=== PATIENT | female | born 1940 | race Caucasian/White ===

== ENCOUNTER 2021-09-18 14:47 | Inpatient (IN) ==
[2021-09-18] MEDS ORDERED: Pantoprazole VIAL 40 MG VIAL IV ONE (15:12)
[2021-09-18] MEDS ORDERED: Lactated Ringers 1000 ml BAG 1,000 ML IV ONE (15:13)
[2021-09-18 16:40] LABS: ABS Lymphocytes 0.1 10^3/ul (1.0-4.8); ABS Monocytes 0.7 10^3/ul (0-0.8); ABS Neutrophils 7.9 10^3/ul (1.5-7.7); Hematocrit 23 % (35-47); Hemoglobin 7.5 g/dL (12.0-16.0); Lymphocyte % 1.6 %; Mean Corpuscular HGB Conc 33 g/dL (31-36); Mean Corpuscular Hemoglobin 27 pg (27-31); Mean Corpuscular Volume 83 fL (80-97); Mean Platelet Volume 7.5 fL (7.4-10.4); Nucleated Red Blood Cells % 0.1; Platelet Count 148 10^3/uL (150-450); Red Blood Count 2.76 10^6 /uL (3.70-4.87); Red Cell Distribution Width 18 % (10-15); White Blood Count 8.8 10^3/uL (3.5-10.8)
[2021-09-18 17:00] LABS: Troponin I 0.01 ng/mL (<0.03)
[2021-09-18 17:25] LABS: ALT < 3 U/L (7-52); AST 3 U/L (13-39); Alkaline Phosphatase 22 U/L (35-149); Blood Urea Nitrogen 53 mg/dL (6-24); C Reactive Protein 12.34 mg/L (<8.01); CO2 Carbon Dioxide 17 mmol/L (22-32); Creatine Kinase < 10 U/L (10-223); Glucose 100 mg/dL (70-100)
[2021-09-18 17:27] LABS: Chloride 119 mmol/L (101-111); Sodium 148 mmol/L (135-145)
[2021-09-18 17:40] LABS: Albumin 1.8 g/dL (3.2-5.2); Albumin/Globulin Ratio 1.5 (1-3); Anion Gap 12 mmol/L (2-11); Calcium 4.6 mg/dL (8.6-10.3); Globulin 1.2 g/dL (2-4); Total Protein < 3.0 g/dL (6.4-8.9)
[2021-09-18 17:44] LABS: Activated Partial Thrombo Time 25.7 seconds (26.0-38.0); INR 1.3 (0.86-1.15)
[2021-09-18] MEDS ORDERED: Potassium Chloride IV 2 MEQ/ML 10 ML VIAL (20 MEQ) IV ONE (17:47)
[2021-09-18] MEDS ORDERED: Calcium Gluconate 4 GM in NS 0.9% 250 ml 250 ML IV ONE (17:49)
[2021-09-18] MEDS ORDERED: Lactated Ringers 1000 ml BAG 1,000 ML IV SCH (18:00)
[2021-09-18] MEDS: KCL 10 MEQ/50 ML IVPREMIX 10 MEQ/50 ML BAG IV ONE ×2 (18:04→18:12)
[2021-09-18] MEDS: Potassium Chlor 20 meq TAB.ER PO ONE ×4 (18:11→18:21)
[2021-09-18] MEDS ORDERED: Ondansetron 4 mg VIAL 2 MG/ML 2 ml VIAL IV PRN (18:13)
[2021-09-18] MEDS ORDERED: Multivitamins ADULT w/MIN LIQ 15 ML UDC PO ONE (18:21)
[2021-09-18] MEDS ORDERED: Potassium Chloride LIQUID 20 MEQ/15 ML LIQUID PO ONE (18:23)
[2021-09-18 18:37] LABS: Magnesium 1.3 mg/dL (1.9-2.7)
[2021-09-18 18:41] LABS: Calcium (PTH Intact) 4.5 mg/dL (8.6-10.3)
[2021-09-18] MEDS ORDERED: Iohexol 300 (CONTRAST) 10 ML SDV IV ONE (18:41)
[2021-09-18 18:43] LABS: Lipase 18 U/L (11.0-82.0); Phosphorus 1.5 mg/dL (2.5-5.0)
[2021-09-18] MEDS ORDERED: Iohexol 350 (CONTRAST) 500 ML MDV IV ONE (18:43)
[2021-09-18 18:49] LABS: Vitamin D Total 25(OH) 46.2 ng/mL (20-50)
[2021-09-18 18:54] LABS: Venous Bicarbonate HCO3 26.8 mmol/L (24-28)
[2021-09-18] MEDS ORDERED: Magnesium Sulf 4 GM/100 ML IV 4,000 MG/100 ML BAG IVPB ONE (18:59)
[2021-09-18] MEDS ORDERED: SODIUM PHOSPHATE IV ONE (18:59)
[2021-09-18] MEDS ORDERED: NS IV ONE (18:59)
[2021-09-18] MEDS ORDERED: Sodium Phosphate IV 20 MMOLE in NS 0.9% 250 ml 250 ML IV ONE (20:00)
[2021-09-18 20:01] LABS: Ferritin 116.1 ng/mL (11-307)
[2021-09-18 21:44] LABS: Hematocrit 34 % (35-47); Hemoglobin 10.5 g/dL (12.0-16.0)
[2021-09-18 21:47] LABS: Calcium 8.5 mg/dL (8.6-10.3); Magnesium 3.4 mg/dL (1.9-2.7); Potassium 3.5 mmol/L (3.5-5.0)
[2021-09-18 21:53] LABS: Phosphorus 2.5 mg/dL (2.5-5.0); eGFR CKD-EPI 49.2 (>60)
[2021-09-18] MEDS: Thiamine 100 MG/ML 2 ml VIAL 500 MG in NS 0.9% 250 ml 250 ML IV SCH (23:55)
[2021-09-19 02:02] LABS: Hematocrit 28 % (35-47)
[2021-09-19 02:23] LABS: Calcium 8.7 mg/dL (8.6-10.3); Magnesium 3.6 mg/dL (1.9-2.7); Phosphorus 4.2 mg/dL (2.5-5.0); Potassium 2.9 mmol/L (3.5-5.0); eGFR CKD-EPI 53.1 (>60)
[2021-09-19 03:57] LABS: Hematocrit 29 % (35-47); Hemoglobin 9.5 g/dL (12.0-16.0); Mean Corpuscular HGB Conc 33 g/dL (31-36); Mean Corpuscular Hemoglobin 27 pg (27-31); Mean Corpuscular Volume 82 fL (80-97); Mean Platelet Volume 7.7 fL (7.4-10.4); Platelet Count 166 10^3/uL (150-450); Red Blood Count 3.51 10^6 /uL (3.70-4.87); Red Cell Distribution Width 18 % (10-15); White Blood Count 9.8 10^3/uL (3.5-10.8)
[2021-09-19] MEDS ORDERED: Potassium EFFERVES 25 meq TAB PO ONE (04:10)
[2021-09-19 04:14] LABS: ALT < 3 U/L (7-52); AST 7 U/L (13-39); Albumin 2.5 g/dL (3.2-5.2); Albumin/Globulin Ratio 1.8 (1-3); Alkaline Phosphatase 34 U/L (35-149); Anion Gap 9 mmol/L (2-11); Blood Urea Nitrogen 60 mg/dL (6-24); CO2 Carbon Dioxide 28 mmol/L (22-32); Calcium 8.3 mg/dL (8.6-10.3); Chloride 97 mmol/L (101-111); Globulin 1.4 g/dL (2-4); Glucose 109 mg/dL (70-100); Magnesium 3.3 mg/dL (1.9-2.7); Phosphorus 4.3 mg/dL (2.5-5.0); Sodium 134 mmol/L (135-145); Total Protein 3.9 g/dL (6.4-8.9); eGFR CKD-EPI 56.3 (>60)
[2021-09-19 04:35] LABS: ABS Lymphocytes 0.5 10^3/ul (1.0-4.8); ABS Monocytes 0.9 10^3/ul (0-0.8); ABS Neutrophils 8.4 10^3/ul (1.5-7.7); Lymphocyte % 4.8 %; Nucleated Red Blood Cells % 0.1
[2021-09-19] MEDS: Thiamine 100 MG/ML 2 ml VIAL 500 MG in NS 0.9% 250 ml 250 ML IV SCH ×3 (05:35→15:16)
[2021-09-19] MEDS: Multivitamins ADULT w/MIN LIQ 15 ML UDC PO SCH (08:28)
[2021-09-19] MEDS: Pantoprazole VIAL 40 MG VIAL IV SCH ×2 (08:28→20:24)
[2021-09-19] MEDS: KCL 20 MEQ/100 ML IVPREMIX 20 MEQ/100 ML BAG IV SCH ×2 (09:03→11:35)
[2021-09-19] MEDS: Iron Sucrose 200 MG in NS 0.9% 100 ml BAG 100 ML IVPB SCH (10:18)
[2021-09-19] MEDS: Lactated Ringers 1000 ml BAG 1,000 ML IV SCH ×2 (10:19→23:32)
[2021-09-19 13:32] LABS: Calcium 8.2 mg/dL (8.6-10.3); Magnesium 2.8 mg/dL (1.9-2.7); Potassium 4.1 mmol/L (3.5-5.0); eGFR CKD-EPI 51.4 (>60)
[2021-09-20] MEDS ORDERED: Midazolam 10 mg/10 ml VIAL 1 mg/ml 10 ml VIAL (10 mg) ONE (08:51)
[2021-09-20] MEDS ORDERED: fentaNYL 100 mcg/2 ml 50 MCG/ML VIAL ONE (08:51)
[2021-09-20] MEDS ORDERED: Iodixanol (CONTRAST) 320 MG/ML 100 ML SDV IV ONE (10:47)
[2021-09-20] MEDS: Iron Sucrose 200 MG in NS 0.9% 100 ml BAG 100 ML IVPB SCH (11:32)
[2021-09-20] MEDS: Multivitamins ADULT w/MIN LIQ 15 ML UDC PO SCH (11:33)
[2021-09-20] MEDS: Pantoprazole VIAL 40 MG VIAL IV SCH ×2 (11:33→20:17)
[2021-09-20 13:19] LABS: ABS Lymphocytes 0.6 10^3/ul (1.0-4.8); ABS Monocytes 0.6 10^3/ul (0-0.8); ABS Neutrophils 10.4 10^3/ul (1.5-7.7); Eosinophil % 0.1 %; Hematocrit 28 % (35-47); Hemoglobin 9.2 g/dL (12.0-16.0); Mean Corpuscular HGB Conc 32 g/dL (31-36); Mean Corpuscular Hemoglobin 27 pg (27-31); Mean Corpuscular Volume 83 fL (80-97); Mean Platelet Volume 7.7 fL (7.4-10.4); Platelet Count 136 10^3/uL (150-450); Red Blood Count 3.42 10^6 /uL (3.70-4.87); Red Cell Distribution Width 18 % (10-15); White Blood Count 11.6 10^3/uL (3.5-10.8)
[2021-09-20 13:36] LABS: Albumin 2.3 g/dL (3.2-5.2); Albumin/Globulin Ratio 1.6 (1-3); Calcium 7.4 mg/dL (8.6-10.3); Globulin 1.4 g/dL (2-4); Magnesium 2.2 mg/dL (1.9-2.7); Potassium 3.7 mmol/L (3.5-5.0); Total Bilirubin 0.7 mg/dL (0.2-1.0); Total Protein 3.7 g/dL (6.4-8.9); eGFR CKD-EPI 54.3 (>60)
[2021-09-20] MEDS ORDERED: cefTRIAXone 2 GM ADDV.VIAL 2 GM in NS 0.9% 100 ml BAG 100 ML IV ONE (16:29)
[2021-09-20] MEDS ORDERED: Lactated Ringers 500 ml BAG 500 ML IV ONE ×2 (17:28→18:36)
[2021-09-20 19:55] LABS: C Reactive Protein 96.24 mg/L (<8.01)
[2021-09-20] MEDS ORDERED: Zosyn per Pharmacy NOTE FOLLOW UP SCH (20:00)
[2021-09-20] MEDS: Piperacillin/Tazobac ADVAN 3.375 GM in NS 0.9% 100 ml BAG 100 ML IV ONE ×2 (20:17→21:11)
[2021-09-20 22:18] LABS: Urine Appearance Cloudy; Urine Bilirubin Negative (Negative); Urine Blood 1+ (Negative); Urine Color Yellow; Urine Glucose Negative (Negative); Urine Ketones Negative (Negative); Urine Nitrite Negative (Negative); Urine Protein Negative (Negative); Urine Specific Gravity 1.028 (1.002-1.030); Urine Urobilinogen Negative (Negative)
[2021-09-20 22:25] LABS: Urine Bacteria Absent (Absent); Urine Red Blood Cell Trace(0-2/hpf) (Absent); Urine Squamous Epithelial Cell Present (Absent); Urine White Blood Cell 2+(11-20/hpf) (Absent)
[2021-09-21] MEDS: Lactated Ringers 1000 ml BAG 1,000 ML IV SCH (01:53)
[2021-09-21] MEDS: ZOSYN 3.375 GM Q8H per EXTENDED INFUSION IV SCH ×3 (02:32→17:04)
[2021-09-21] MEDS: Pantoprazole VIAL 40 MG VIAL IV SCH ×2 (08:27→22:20)
[2021-09-21] MEDS: Multivitamins ADULT w/MIN LIQ 15 ML UDC PO SCH (08:27)
[2021-09-21 08:40] LABS: ABS Lymphocytes 0.8 10^3/ul (1.0-4.8); ABS Monocytes 0.6 10^3/ul (0-0.8); ABS Neutrophils 11.8 10^3/ul (1.5-7.7); Eosinophil % 0.3 %; Hematocrit 29 % (35-47); Hemoglobin 9.3 g/dL (12.0-16.0); Mean Corpuscular HGB Conc 32 g/dL (31-36); Mean Corpuscular Hemoglobin 26 pg (27-31); Mean Corpuscular Volume 83 fL (80-97); Mean Platelet Volume 8.2 fL (7.4-10.4); Platelet Count 159 10^3/uL (150-450); Red Blood Count 3.53 10^6 /uL (3.70-4.87); Red Cell Distribution Width 18 % (10-15); White Blood Count 13.3 10^3/uL (3.5-10.8)
[2021-09-21 09:02] LABS: Calcium 7.4 mg/dL (8.6-10.3); Magnesium 1.9 mg/dL (1.9-2.7); Phosphorus 1.2 mg/dL (2.5-5.0); Potassium 3.8 mmol/L (3.5-5.0); eGFR CKD-EPI 59.1 (>60)
[2021-09-21 10:36] LABS: Albumin 2.3 g/dL (3.2-5.2); Albumin/Globulin Ratio 1.4 (1-3); Direct Bilirubin 0.1 mg/dL (0.03-0.18); Globulin 1.6 g/dL (2-4); Indirect Bilirubin 0.4 mg/dL (0.3-1.0); Total Bilirubin 0.5 mg/dL (0.2-1.0); Total Protein 3.9 g/dL (6.4-8.9)
[2021-09-21] MEDS ORDERED: Lactated Ringers 1000 ml BAG 1,000 ML IV SCH ×2 (11:31→14:06)
[2021-09-21 12:32] LABS: TSH Ultra Thyroid Stim Horm 0.37 mcIU/mL (0.34-5.60)
[2021-09-21 12:33] LABS: Free T3 1.4 pg/mL (2.5-3.9)
[2021-09-21 12:34] LABS: Free T4 0.78 ng/dL (0.61-1.12)
[2021-09-21] MEDS ORDERED: Potassium Phosphate IV 15 MMOLE in NS 0.9% 250 ml 250 ML IVPB ONE (14:11)
[2021-09-21] MEDS: Heparin 5000 UNITS/ML 1 mL VIAL SUBCUT SCH ×2 (15:07→22:21)
[2021-09-21 16:15] LABS: Urine Appearance Cloudy; Urine Bilirubin Negative (Negative); Urine Blood 1+ (Negative); Urine Color Yellow; Urine Glucose Negative (Negative); Urine Ketones Negative (Negative); Urine Nitrite Negative (Negative); Urine Protein Negative (Negative); Urine Specific Gravity 1.028 (1.002-1.030); Urine Urobilinogen Negative (Negative)
[2021-09-21 16:31] LABS: Urine Bacteria 1+ (Absent); Urine Red Blood Cell 3+(>10/hpf) (Absent); Urine Squamous Epithelial Cell Present (Absent); Urine White Blood Cell 1+(6-10/hpf) (Absent)
[2021-09-21 21:57] LABS: Calcium 7.1 mg/dL (8.6-10.3); Potassium 3.5 mmol/L (3.5-5.0); eGFR CKD-EPI 60.6 (>60)
[2021-09-21] MEDS: Potassium & Sodium Phos 250 mg = 1 PACKET PO SCH (22:20)
[2021-09-22] MEDS ORDERED: Lactated Ringers 1000 ml BAG 1,000 ML IV ONE ×3 (01:13→18:38)
[2021-09-22] MEDS: ZOSYN 3.375 GM Q8H per EXTENDED INFUSION IV SCH ×2 (01:28→08:45)
[2021-09-22] MEDS: Lactated Ringers 1000 ml BAG 1,000 ML IV SCH ×2 (03:43→21:46)
[2021-09-22] MEDS: Heparin 5000 UNITS/ML 1 mL VIAL SUBCUT SCH ×3 (06:13→21:41)
[2021-09-22] MEDS: Potassium & Sodium Phos 250 mg = 1 PACKET PO SCH ×2 (08:45→21:40)
[2021-09-22] MEDS: Pantoprazole VIAL 40 MG VIAL IV SCH ×2 (08:46→21:40)
[2021-09-22 10:25] LABS: ABS Lymphocytes 0.5 10^3/ul (1.0-4.8); ABS Neutrophils 19.9 10^3/ul (1.5-7.7); Hematocrit 25 % (35-47); Hemoglobin 8.2 g/dL (12.0-16.0); Lymphocyte % 2.3 %; Mean Corpuscular HGB Conc 33 g/dL (31-36); Mean Corpuscular Hemoglobin 27 pg (27-31); Mean Corpuscular Volume 83 fL (80-97); Mean Platelet Volume 8.1 fL (7.4-10.4); Platelet Count 157 10^3/uL (150-450); Red Blood Count 3.03 10^6 /uL (3.70-4.87); Red Cell Distribution Width 18 % (10-15); White Blood Count 21.4 10^3/uL (3.5-10.8)
[2021-09-22 10:40] LABS: Potassium 3.1 mmol/L (3.5-5.0)
[2021-09-22 10:41] LABS: C Reactive Protein 189.45 mg/L (<8.01); Calcium 6.9 mg/dL (8.6-10.3); Magnesium 1.5 mg/dL (1.9-2.7); Phosphorus 2.1 mg/dL (2.5-5.0); eGFR CKD-EPI 64.6 (>60)
[2021-09-22] MEDS ORDERED: Magnesium Sulfate IV 3 GM in NS 0.9% 100 ml BAG 100 ML IVPB ONE (11:07)
[2021-09-22 11:29] LABS: HDL Cholesterol 31.9 mg/dL
[2021-09-22] MEDS ORDERED: Magnesium Sulfate 2 GM IV (Premix) IVPB ONE (12:00)
[2021-09-22] MEDS: metroNIDAZOLE IV 500 MG/100ML 500 MG/100 ML BAG IVPB SCH ×2 (12:00→21:41)
[2021-09-22] MEDS: Multivitamins ADULT w/MIN LIQ 15 ML UDC PO SCH (12:00)
[2021-09-22 12:01] LABS: Albumin/Globulin Ratio 1.3 (1-3); Direct Bilirubin 0.1 mg/dL (0.03-0.18); Globulin 1.6 g/dL (2-4); Indirect Bilirubin 0.4 mg/dL (0.3-1.0); Total Bilirubin 0.5 mg/dL (0.2-1.0); Total Protein 3.6 g/dL (6.4-8.9)
[2021-09-22] MEDS ORDERED: Magnesium Sulfate 1 GM IV 1 GM/100 ML BAG IV ONE (13:00)
[2021-09-22] MEDS ORDERED: Lactated Ringers 500 ml BAG 500 ML IV ONE (13:47)
[2021-09-22] MEDS: Vancomycin- *ENEMA* PR 500MG PR SCH ×2 (15:18→21:42)
[2021-09-22] MEDS: KCL 20 MEQ/100 ML IVPREMIX 20 MEQ/100 ML BAG IV SCH ×3 (15:23→22:54)
[2021-09-22 18:16] LABS: Hematocrit 26 % (35-47); Hemoglobin 8.3 g/dL (12.0-16.0); Mean Corpuscular HGB Conc 32 g/dL (31-36); Mean Corpuscular Hemoglobin 27 pg (27-31); Mean Corpuscular Volume 83 fL (80-97); Mean Platelet Volume 8.1 fL (7.4-10.4); Platelet Count 172 10^3/uL (150-450); Red Blood Count 3.11 10^6 /uL (3.70-4.87); Red Cell Distribution Width 18 % (10-15)
[2021-09-22 18:33] LABS: Calcium 7.1 mg/dL (8.6-10.3); Magnesium 2.6 mg/dL (1.9-2.7); Potassium 3.7 mmol/L (3.5-5.0); eGFR CKD-EPI 53.7 (>60)
[2021-09-22 18:40] LABS: Anisocytosis 1+; Toxic Granulation 1+
[2021-09-22 18:41] LABS: ABS Lymphocytes 0.5 10^3/ul (1.0-4.8); ABS Monocytes 1.2 10^3/ul (0-0.8); ABS Neutrophils 24.3 10^3/ul (1.5-7.7); Dohle Bodies Present; Lymphocyte % 1.9 %
[2021-09-22] MEDS ORDERED: Iohexol 350 (CONTRAST) 500 ML MDV IV ONE (19:54)
[2021-09-22] MEDS ORDERED: KCL 20 MEQ/100 ML IVPREMIX 20 MEQ/100 ML BAG ONE (22:49)
[2021-09-23] MEDS: Vancomycin- *ENEMA* PR 500MG PR SCH ×4 (01:38→21:00)
[2021-09-23] MEDS: metroNIDAZOLE IV 500 MG/100ML 500 MG/100 ML BAG IVPB SCH ×3 (01:39→18:11)
[2021-09-23] MEDS: Heparin 5000 UNITS/ML 1 mL VIAL SUBCUT SCH (06:35)
[2021-09-23 07:17] LABS: Hematocrit 23 % (35-47); Hemoglobin 7.4 g/dL (12.0-16.0); Mean Corpuscular HGB Conc 32 g/dL (31-36); Mean Corpuscular Hemoglobin 27 pg (27-31); Mean Corpuscular Volume 83 fL (80-97); Mean Platelet Volume 8.2 fL (7.4-10.4); Platelet Count 164 10^3/uL (150-450); Red Blood Count 2.76 10^6 /uL (3.70-4.87); Red Cell Distribution Width 18 % (10-15)
[2021-09-23 07:23] LABS: ABS Lymphocytes 0.6 10^3/ul (1.0-4.8); ABS Monocytes 1.2 10^3/ul (0-0.8); ABS Neutrophils 20.2 10^3/ul (1.5-7.7); Eosinophil % 0.1 %; Lymphocyte % 2.5 %
[2021-09-23 07:30] LABS: Albumin 1.8 g/dL (3.2-5.2); Albumin/Globulin Ratio 1.1 (1-3); Calcium 6.8 mg/dL (8.6-10.3); Globulin 1.7 g/dL (2-4); Potassium 3.9 mmol/L (3.5-5.0); Total Bilirubin 0.5 mg/dL (0.2-1.0); Total Protein 3.5 g/dL (6.4-8.9); eGFR CKD-EPI 61.3 (>60)
[2021-09-23] MEDS: Potassium & Sodium Phos 250 mg = 1 PACKET PO SCH ×2 (10:37→21:00)
[2021-09-23 10:45] LABS: Magnesium 2.2 mg/dL (1.9-2.7); Phosphorus 2.9 mg/dL (2.5-5.0)
[2021-09-23] MEDS: Pantoprazole VIAL 40 MG VIAL IV SCH ×2 (10:58→21:00)
[2021-09-23 13:40] LABS: Hematocrit 25 % (35-47); Hemoglobin 7.9 g/dL (12.0-16.0)
[2021-09-23] MEDS ORDERED: COVID-19 VACCINE, TRIS(PFIZER)/PF 30 MCG/0.3 ML IM ONE (15:00)
[2021-09-23] MEDS ORDERED: CALCIUM GLUCONATE 1GM/50ML NS 1 GM/50 ML BAG IV ONE (18:12)
[2021-09-23] MEDS ORDERED: Lactated Ringers 1000 ml BAG 1,000 ML IV SCH (21:00)
[2021-09-24] MEDS: Vancomycin- *ENEMA* PR 500MG PR SCH ×3 (02:18→21:17)
[2021-09-24] MEDS: metroNIDAZOLE IV 500 MG/100ML 500 MG/100 ML BAG IVPB SCH ×3 (02:18→21:04)
[2021-09-24 05:41] LABS: ABS Lymphocytes 0.7 10^3/ul (1.0-4.8); ABS Monocytes 0.7 10^3/ul (0-0.8); ABS Neutrophils 13.1 10^3/ul (1.5-7.7); Eosinophil % 0.2 %; Hematocrit 23 % (35-47); Hemoglobin 7.5 g/dL (12.0-16.0); Lymphocyte % 5.1 %; Mean Corpuscular HGB Conc 32 g/dL (31-36); Mean Corpuscular Hemoglobin 27 pg (27-31); Mean Corpuscular Volume 84 fL (80-97); Mean Platelet Volume 7.5 fL (7.4-10.4); Platelet Count 186 10^3/uL (150-450); Red Blood Count 2.78 10^6 /uL (3.70-4.87); Red Cell Distribution Width 19 % (10-15); White Blood Count 14.5 10^3/uL (3.5-10.8)
[2021-09-24 06:00] LABS: Calcium 6.9 mg/dL (8.6-10.3); Phosphorus 3.8 mg/dL (2.5-5.0); Potassium 3.5 mmol/L (3.5-5.0); eGFR CKD-EPI 62.9 (>60)
[2021-09-24] MEDS ORDERED: CALCIUM GLUCONATE 1GM/50ML NS 1 GM/50 ML BAG IV ONE (07:42)
[2021-09-24] MEDS ORDERED: Flu vaccine *QUAD* 2021-22* 0.5 ML SYRINGE IM ONE (09:00)
[2021-09-24] MEDS: Pantoprazole VIAL 40 MG VIAL IV SCH ×2 (09:08→22:35)
[2021-09-24 09:32] LABS: C Reactive Protein 244.24 mg/L (<8.01)
[2021-09-24] MEDS: Potassium & Sodium Phos 250 mg = 1 PACKET PO SCH (11:21)
[2021-09-24] MEDS ORDERED: Midazolam 5 mg/5 ml VIAL 1 mg/ml 5 ml VIAL (5 mg) ONE (14:10)
[2021-09-24] MEDS ORDERED: fentaNYL 100 mcg/2 ml 50 MCG/ML VIAL ONE (14:10)
[2021-09-25] MEDS: metroNIDAZOLE IV 500 MG/100ML 500 MG/100 ML BAG IVPB SCH (04:21)
[2021-09-25 06:51] LABS: ABS Lymphocytes 0.7 10^3/ul (1.0-4.8); ABS Monocytes 0.5 10^3/ul (0-0.8); ABS Neutrophils 10.7 10^3/ul (1.5-7.7); Eosinophil % 0.1 %; Hematocrit 26 % (35-47); Hemoglobin 8.4 g/dL (12.0-16.0); Lymphocyte % 5.9 %; Mean Corpuscular HGB Conc 32 g/dL (31-36); Mean Corpuscular Hemoglobin 27 pg (27-31); Mean Corpuscular Volume 83 fL (80-97); Mean Platelet Volume 8.1 fL (7.4-10.4); Platelet Count 215 10^3/uL (150-450); Red Blood Count 3.12 10^6 /uL (3.70-4.87); Red Cell Distribution Width 19 % (10-15)
[2021-09-25 07:09] LABS: Calcium 7.2 mg/dL (8.6-10.3); Magnesium 1.9 mg/dL (1.9-2.7); Potassium 3.3 mmol/L (3.5-5.0); eGFR CKD-EPI 59.8 (>60)
[2021-09-25 08:02] LABS: Phosphorus 3.5 mg/dL (2.5-5.0)
[2021-09-25] MEDS: Pantoprazole VIAL 40 MG VIAL IV SCH ×2 (09:25→21:19)
[2021-09-25] MEDS ORDERED: Potassium Chlor 10 meq TAB PO ONE (15:54)
[2021-09-25] MEDS ORDERED: CALCIUM GLUCONATE 1GM/50ML NS 1 GM/50 ML BAG IV ONE (15:56)
[2021-09-25] MEDS ORDERED: Furosemide 20 mg/2 ml IV VIAL IV ONE (16:22)
[2021-09-26 05:23] LABS: ABS Lymphocytes 0.8 10^3/ul (1.0-4.8); ABS Monocytes 0.4 10^3/ul (0-0.8); ABS Neutrophils 9.2 10^3/ul (1.5-7.7); Eosinophil % 0.1 %; Hematocrit 23 % (35-47); Hemoglobin 7.6 g/dL (12.0-16.0); Lymphocyte % 7.6 %; Mean Corpuscular HGB Conc 32 g/dL (31-36); Mean Corpuscular Hemoglobin 27 pg (27-31); Mean Corpuscular Volume 84 fL (80-97); Mean Platelet Volume 7.6 fL (7.4-10.4); Platelet Count 194 10^3/uL (150-450); Red Blood Count 2.77 10^6 /uL (3.70-4.87); Red Cell Distribution Width 19 % (10-15); White Blood Count 10.4 10^3/uL (3.5-10.8)
[2021-09-26 05:40] LABS: Calcium 6.9 mg/dL (8.6-10.3); Magnesium 1.8 mg/dL (1.9-2.7); Phosphorus 3.1 mg/dL (2.5-5.0); Potassium 3.3 mmol/L (3.5-5.0); eGFR CKD-EPI 57.6 (>60)
[2021-09-26] MEDS: Pantoprazole VIAL 40 MG VIAL IV SCH (07:41)
[2021-09-26] MEDS ORDERED: Magnesium Sulfate 2 gm BAG 2 GM/50 ML BAG IVPB ONE (10:18)
[2021-09-26] MEDS ORDERED: Potassium Chlor 10 meq TAB PO ONE (10:19)
[2021-09-26] MEDS: Heparin 5000 UNITS/ML 1 mL VIAL SUBCUT SCH ×2 (13:54→20:46)
[2021-09-26 16:47] LABS: Albumin 1.5 g/dL (3.4-4.7); Albumin/Globulin Ratio 0.85; Gamma Globulin 0.3 g/dL (0.6-1.6); Total Protein(PEP) 3.2 g/dL (6.3 - 7.9)
[2021-09-27] MEDS: Heparin 5000 UNITS/ML 1 mL VIAL SUBCUT SCH ×3 (05:58→21:11)
[2021-09-27 06:01] LABS: ABS Basophils 0.1 10^3/ul (0-0.2); ABS Lymphocytes 0.7 10^3/ul (1.0-4.8); ABS Monocytes 0.4 10^3/ul (0-0.8); ABS Neutrophils 13.8 10^3/ul (1.5-7.7); Hematocrit 24 % (35-47); Hemoglobin 7.6 g/dL (12.0-16.0); Lymphocyte % 4.9 %; Mean Corpuscular HGB Conc 32 g/dL (31-36); Mean Corpuscular Hemoglobin 27 pg (27-31); Mean Corpuscular Volume 84 fL (80-97); Mean Platelet Volume 7.5 fL (7.4-10.4); Platelet Count 202 10^3/uL (150-450); Red Blood Count 2.85 10^6 /uL (3.70-4.87); Red Cell Distribution Width 19 % (10-15)
[2021-09-27 06:19] LABS: Calcium 6.9 mg/dL (8.6-10.3); Magnesium 2.1 mg/dL (1.9-2.7); Phosphorus 2.2 mg/dL (2.5-5.0); eGFR CKD-EPI 52.5 (>60)
[2021-09-27] MEDS ORDERED: Perflutren Lipid Microsphere 3 ML VIAL ONE (14:31)
[2021-09-28] MEDS: Heparin 5000 UNITS/ML 1 mL VIAL SUBCUT SCH ×3 (05:06→20:47)
[2021-09-28 11:07] LABS: Hematocrit 24 % (35-47); Hemoglobin 7.6 g/dL (12.0-16.0); Mean Corpuscular HGB Conc 32 g/dL (31-36); Mean Corpuscular Hemoglobin 27 pg (27-31); Mean Corpuscular Volume 84 fL (80-97); Mean Platelet Volume 7.6 fL (7.4-10.4); Platelet Count 237 10^3/uL (150-450); Red Blood Count 2.88 10^6 /uL (3.70-4.87); Red Cell Distribution Width 19 % (10-15)
[2021-09-28 11:23] LABS: Calcium 7.1 mg/dL (8.6-10.3); Potassium 3.9 mmol/L (3.5-5.0); eGFR CKD-EPI 65.5 (>60)
[2021-09-28] MEDS: Potassium & Sodium Phos 250 mg = 1 PACKET PO SCH ×2 (11:33→20:47)
[2021-09-29 04:45] LABS: Hematocrit 21 % (35-47); Hemoglobin 6.9 g/dL (12.0-16.0); Mean Corpuscular HGB Conc 33 g/dL (31-36); Mean Corpuscular Hemoglobin 28 pg (27-31); Mean Corpuscular Volume 85 fL (80-97); Mean Platelet Volume 7.5 fL (7.4-10.4); Platelet Count 213 10^3/uL (150-450); Red Cell Distribution Width 19 % (10-15); White Blood Count 13.7 10^3/uL (3.5-10.8)
[2021-09-29 05:02] LABS: Calcium 6.9 mg/dL (8.6-10.3); Phosphorus 2.7 mg/dL (2.5-5.0); Potassium 3.7 mmol/L (3.5-5.0); eGFR CKD-EPI 70.2 (>60)
[2021-09-29] MEDS: Heparin 5000 UNITS/ML 1 mL VIAL SUBCUT SCH (05:47)
[2021-09-29] MEDS: Potassium & Sodium Phos 250 mg = 1 PACKET PO SCH ×2 (10:19→20:59)
[2021-09-29 11:09] LABS: Hematocrit 25 % (35-47); Hemoglobin 7.9 g/dL (12.0-16.0)
[2021-09-29 11:14] LABS: INR 0.97 (0.86-1.15)
[2021-09-29 11:25] LABS: Phosphorus 2.1 mg/dL (2.5-5.0)
[2021-09-29] MEDS ORDERED: Al Hydrox/Mg Hydrox/Simet LIQ 30 ML UDC PO PRN (15:07)
[2021-09-29] MEDS ORDERED: Calcium Carb (TUMS) 500 mg CHEW TAB PO PRN (15:07)
[2021-09-30 09:01] LABS: Blood Urea Nitrogen 23 mg/dL (6-24); CO2 Carbon Dioxide 28 mmol/L (22-32); Calcium 7.3 mg/dL (8.6-10.3); Glucose 96 mg/dL (70-100); Sodium 145 mmol/L (135-145); eGFR CKD-EPI 63.8 (>60)
[2021-09-30 09:11] LABS: Chloride 113 mmol/L (101-111)
[2021-09-30 09:19] LABS: Anion Gap 4 mmol/L (2-11)
[2021-09-30 09:27] LABS: Hematocrit 25 % (35-47); Mean Corpuscular HGB Conc 32 g/dL (31-36); Mean Corpuscular Hemoglobin 27 pg (27-31); Mean Corpuscular Volume 85 fL (80-97); Mean Platelet Volume 7.5 fL (7.4-10.4); Platelet Count 284 10^3/uL (150-450); Red Blood Count 2.97 10^6 /uL (3.70-4.87); Red Cell Distribution Width 20 % (10-15); White Blood Count 11.9 10^3/uL (3.5-10.8)
[2021-09-30] MEDS: Potassium & Sodium Phos 250 mg = 1 PACKET PO SCH ×2 (10:48→21:47)
[2021-10-01] MEDS: Enoxaparin 40 MG/0.4 ML SYR SUBCUT SCH (10:30)
[2021-10-02 06:17] LABS: ABS Monocytes 0.4 10^3/ul (0-0.8); Eosinophil % 0.4 %; Hematocrit 21 % (35-47); Hemoglobin 6.9 g/dL (12.0-16.0); Mean Corpuscular HGB Conc 33 g/dL (31-36); Mean Corpuscular Hemoglobin 28 pg (27-31); Mean Corpuscular Volume 85 fL (80-97); Mean Platelet Volume 7.3 fL (7.4-10.4); Platelet Count 268 10^3/uL (150-450); Red Blood Count 2.47 10^6 /uL (3.70-4.87); Red Cell Distribution Width 20 % (10-15); White Blood Count 8.5 10^3/uL (3.5-10.8)
[2021-10-02 06:37] LABS: Calcium 7.6 mg/dL (8.6-10.3); Potassium 3.7 mmol/L (3.5-5.0); eGFR CKD-EPI 71.2 (>60)
[2021-10-02] MEDS: Enoxaparin 40 MG/0.4 ML SYR SUBCUT SCH (08:09)
[2021-10-03] MEDS: Enoxaparin 40 MG/0.4 ML SYR SUBCUT SCH (08:04)
[2021-10-03 09:36] LABS: ABS Lymphocytes 0.8 10^3/ul (1.0-4.8); ABS Monocytes 0.2 10^3/ul (0-0.8); ABS Neutrophils 5.3 10^3/ul (1.5-7.7); Eosinophil % 0.5 %; Hematocrit 29 % (35-47); Hemoglobin 9.8 g/dL (12.0-16.0); Lymphocyte % 12.3 %; Mean Corpuscular HGB Conc 33 g/dL (31-36); Mean Corpuscular Hemoglobin 29 pg (27-31); Mean Corpuscular Volume 87 fL (80-97); Mean Platelet Volume 7.5 fL (7.4-10.4); Platelet Count 323 10^3/uL (150-450); Red Blood Count 3.39 10^6 /uL (3.70-4.87); Red Cell Distribution Width 20 % (10-15); White Blood Count 6.4 10^3/uL (3.5-10.8)
[2021-10-03 09:57] LABS: Calcium 8.1 mg/dL (8.6-10.3); eGFR CKD-EPI 69.2 (>60)
[2021-10-04] MEDS: Enoxaparin 40 MG/0.4 ML SYR SUBCUT SCH (12:37)
[2021-10-05] MEDS: Enoxaparin 40 MG/0.4 ML SYR SUBCUT SCH (11:07)
[2021-10-06 08:20] LABS: Calcium 8.4 mg/dL (8.6-10.3); Potassium 3.8 mmol/L (3.5-5.0); eGFR CKD-EPI 80.4 (>60)
[2021-10-06 08:41] LABS: Hematocrit 27 % (35-47); Hemoglobin 8.8 g/dL (12.0-16.0); Mean Corpuscular HGB Conc 33 g/dL (31-36); Mean Corpuscular Hemoglobin 29 pg (27-31); Mean Corpuscular Volume 87 fL (80-97); Mean Platelet Volume 7.5 fL (7.4-10.4); Platelet Count 356 10^3/uL (150-450); Red Blood Count 3.05 10^6 /uL (3.70-4.87); Red Cell Distribution Width 23 % (10-15); White Blood Count 5.6 10^3/uL (3.5-10.8)
[2021-10-06 09:17] LABS: ABS Lymphocytes 0.9 10^3/ul (1.0-4.8); ABS Monocytes 0.5 10^3/ul (0-0.8); ABS Neutrophils 4.2 10^3/ul (1.5-7.7); Eosinophil % 0.6 %; Lymphocyte % 16.2 %
[2021-10-06] MEDS: Enoxaparin 40 MG/0.4 ML SYR SUBCUT SCH (10:15)
[2021-10-07 04:47] VITALS: BP 137/64
[2021-10-07] MEDS: Enoxaparin 40 MG/0.4 ML SYR SUBCUT SCH (09:39)
== END 2021-10-07 12:30 | DRG 871 ==
LOC: ED 14:47 → SUATTDRO 18:13 → EDHOLD 18:13 → MEDTELE 20:45
PROVIDERS: ADMIT Hospitalist; ATTEND Internal Medicine